=== PATIENT | female | born 1990 | race Caucasian/White ===

== ENCOUNTER → 2020-04-07 08:56 | Outpatient (BNVA) | payer OTHER, SELFPAY | PROVIDERS: PCP Family Medicine; Visit Provider Nurse Practitioner Family | DX: Z20.828 Contact with and (suspected) exposure to other viral communicable diseases (principal); Z01.812 Encounter for preprocedural laboratory examination | CPT/HCPCS: 87635 ==

== ENCOUNTER → 2020-12-18 11:51 | Outpatient (BNVA) | payer OTHER, SELFPAY | PROVIDERS: PCP Family Medicine; Visit Provider Surgery | DX: K62.5 Hemorrhage of anus and rectum (principal); K21.9 Gastro-esophageal reflux disease without esophagitis; Z20.822 Contact with and (suspected) exposure to COVID-19 | CPT/HCPCS: 87635 ==

== ENCOUNTER 2020-12-24 06:43 | Day surgery (SDC) | payer MEDICAID, SELFPAY ==
[2020-12-22 13:56] VITALS: BMI 35.2
--- NOTE | 2020-12-24 07:38 | ANES.PREANE2 ---
Pre-Anesthetic Assessment Pre-Anesthetic Assessment: Height/Weight: Height 1.52 m Weight 81.647 kg Preop Diagnosis: Hematemesis and hematochezia Proposed Procedure: Operation Date: 12/24/20 08:00 Proposed Procedures p EGD/colon 12004 36264 K21.9 K62.5(Not Applicable) - Yoshi Fischer MD s Colonoscopy(Not Applicable) - Yoshi Fischer MD Was Beta Senia taken within 24 hours: N/A Was Clonidine taken within 24 hours: N/A Social: Social History: No alcohol and No tobacco Exam: Pre-Anes Outpt Exam: alert, oriented x 3, clear to auscultation bilaterally and regular rate & rhythm Airway: Submandibular: WNL Cervical ROM: WNL MP: 2 Dentition: Full History/ROS: No significant history except as noted Metabolic: Metabolic: Morbid obesity Anesthetic Plan: ASA status: 2 Anesthesia: MAC Risk of > 500 ml blood loss (7ml/kg in children): No PFSH Anesthesia PFSH: Medical History Rectal bleeding Vomiting blood Surgical History History of ankle surgery Family History Grandfather Cancer COLON Denies family history of Anesthesia complication Bleeding disorder Social History Smoking and tobacco status: never smoked Female Reproductive History: Date of last menstrual period: 11/25/20 Data Anesthesia Cardiac Studies: No Data to Display
[2020-12-24 07:41] VITALS: BP 156/117; PULSE 110; RESP 16; TEMP 36.8; O2SAT 100
[2020-12-24] MEDS: sodium chloride 0.9% 1,000 ML 30 ML IV (07:54)
--- NOTE | 2020-12-24 08:18 | W.PM.OPSUD ---
Surgery/Procedure H&P Update DATE OF PROCEDURE: December 24, 2020 DATE H&P PERFORMED: 12/18/20 H&P UPDATE INFORMATION: I have reviewed H&P completed within last 30 days, I have examined patient prior to procedure and No changes to prior documentation PREOP DIAGNOSIS: Hematemesis and hematochezia PRIMARY INDICATION FOR PROCEDURE: The same PLANNED PROCEDURE: Operation Date: 12/24/20 08:00 Proposed Procedures p EGD/colon 14199 [id number] K21.9 K62.5(Not Applicable) - Yoshi Fischer MD s Colonoscopy(Not Applicable) - Yoshi Fischer MD
[2020-12-24 08:57] VITALS: BP 131/97; PULSE 84; RESP 16; TEMP 36.2; O2SAT 95
--- NOTE | 2020-12-24 09:02 | ANE.PACU2 ---
Inpatient post-anesthesia follow up: Airway intact: Yes Vital signs: Temperature 98.2 F Pulse Rate 110 Respiratory Rate 16 Blood Pressure 156/117 Pulse Oximetry 100 Oxygen Delivery Me thod Room Air Oxygen Flow Rate Fraction of Inspir ed Oxygen Hydration adequate: Yes Nausea and vomiting: Yes Mental status: Baseline
[2020-12-24] MEDS: ondansetron 2 mg/ML SDV 2 mL 4 MG IVP (09:03)
[2020-12-24 09:05] LABS: OR HCG Qualitative Urine Negative (Negative)
[2020-12-24] MEDS: promethazine 25 mg/mL SDV 1 mL 12.5 MG IM (09:29)
[2020-12-24] MEDS: scopolamine 1.5 Patch 1 PATCH TRANSDERMA (09:36)
[2020-12-24 09:39] VITALS: BP 152/102; PULSE 100; RESP 16; TEMP 36.4; O2SAT 100
[2020-12-25 06:38] LABS: H. Pylori / CLO Test Negative
== END 2020-12-24 10:00 | disposition home or self-care (01) ==
PROVIDERS: Anesthesiology; PCP Family Medicine; Visit Provider Surgery
PROC: 0DJ08ZZ Inspection of Upper Intestinal Tract, Via Natural or Artificial Opening Endoscopic (ICD-10-PCS; CPT 43235; principal; 2020-12-24 08:00)
PROC: 0DJD8ZZ Inspection of Lower Intestinal Tract, Via Natural or Artificial Opening Endoscopic (ICD-10-PCS; CPT 45378; 2020-12-24 08:00)
DX: K92.1 Melena (principal); K92.0 Hematemesis; Z80.0 Family history of malignant neoplasm of digestive organs; K21.00 Gastro-esophageal reflux disease with esophagitis, without bleeding; K29.70 Gastritis, unspecified, without bleeding; E66.01 Morbid (severe) obesity due to excess calories; Z68.35 Body mass index [BMI] 35.0-35.9, adult
CPT/HCPCS: 43239; 45378; 84703; 87077; 96361; 96374; J2405; J2550; J2704; J7030

== ENCOUNTER 2024-07-17 01:52 | Inpatient (IN) | payer SELFPAY ==
[2024-07-17] VITALS (7 sets, daily range): BP systolic 123–142; BP diastolic 74–103; PULSE 82–142; RESP 13–20; TEMP 36.7–37; O2SAT 95–99; BMI 35.2
--- NOTE | 2024-07-17 01:53 | ECG_ITS ---
[facility] 2024[facility]17 Pat Name: Yulissa Matthews Department: Room: Gender: Female Machine Folder: : 1990 Requested By: Mallory Medina Order Number: [id number] Rona MD: Calin Randolph M.D. Measurements Intervals Avinger Rate: 136 P: 33 MN: 127 QRS: -46 QRSD: 83 T: 30 QT: 331 QTc: 498 Interpretive Statements SINUS TACHYCARDIA LEFT ANTERIOR FASCICULAR BLOCK [QRS AXIS <= -45, QR IN I, RS IN II] POSSIBLE ANTERIOR MYOCARDIAL INFARCTION , PROBABLY OLD [30 ms Q WAVE IN V3/V4, OR R < 0.2 mV IN V4] Compared to ECG 12/21/2015 22:49:21 Left anterior fascicular block now present Myocardial infarct finding now present Sinus rhythm no longer present Electronically Signed On 07-17-2024 19:19:40 CDT by Calin Randolph M.D. [email or web address]
--- NOTE | 2024-07-17 01:59 | W.ED.OVERDOS ---
HPI - Overdose General: Chief Complaint: Overdose Stated Complaint: possible od Time Seen by Provider: 07/17/24 01:53 History of Present Illness: 33-year-old female who presents emergency room with possible overdose. She took a handful of Benadryl . She is very somnolent on presentation but has continued to say to EMS and to myself that she was just trying to go to sleep that she has no suicidal thoughts or intentions. Related Data Home Medications ?Medication ?Instructions ?Recorded ?Confirmed chlorthalidone 25 mg tablet 25 mg PO DAILY blood pressure 12/22/20 01/11/23 clarithromycin 500 mg tablet 500 mg PO BID 12/22/20 01/11/23 metronidazole 500 mg tablet 500 mg PO BID 12/22/20 01/11/23 omeprazole 40 mg capsule,delayed 40 mg PO DAILY 12/22/20 01/11/23 release Previous Rx's ?Medication ?Instructions ?Recorded azithromycin 500 mg tablet 500 mg PO DAILY 5 days #5 tabs 02/15/22 (Zithromax) cetirizine 10 mg tablet (Zyrtec) 10 mg PO DAILY #30 tabs 02/15/22 ofloxacin 0.3 % ear drops 5 drp otic (ear) BID 5 days #10 mL 02/15/22 Allergies Allergy/AdvReac Type Severity Reaction Status Date / Time Penicillins Allergy Severe ADR-Itching Verified 07/17/24 02:04 Review of Systems General: Reports: 10 or more systems reviewed and unremarkable except in HPI and below PFSH ED PFSH: Medical History Gastritis Rectal bleeding Vomiting blood Surgical History History of ankle surgery Family History Grandfather Cancer COLON Denies family history of Anesthesia complication Bleeding disorder Social History Smoking and tobacco/nicotine status: never used tobacco/nicotine Physical Exam Narrative: EXAM NARRATIVE: General: Somnolent but arousable Skin: Warm, dry Head: Normocephalic, atraumatic. Neck: Supple, trachea midline. Eye: Extraocular movements are intact. Ears, nose, mouth and throat: Dry oral mucosa. Cardiovascular: Regular rate and rhythm, Normal peripheral perfusion. Respiratory: Lungs are clear to auscultation, respirations are non-labored, breath sounds are equal, Symmetrical chest wall expansion. Gastrointestinal: Soft, Nontender, Non distended, Normal bowel sounds. Musculoskeletal: no deformity. Neurological: Somnolent but oriented when awakened, No obvious focal neurological deficit observed. Psychiatric: unable to assess. Course Vital Signs: Vital signs: Vital Signs Temperature 98.4 F 07/17/24 01:55 Pulse Rate 120 H 07/17/24 02:34 Respiratory Rate 13 07/17/24 02:34 Blood Pressure 132/103 07/17/24 02:34 Pulse Oximetry 95 07/17/24 02:34 Oxygen Delivery Me thod Room Air 07/17/24 02:34 MDM - Overdose Medical Decision Making Further history from family member who has filled out an affidavit. She said she was feeling down and felt unloved. At 1 point she stopped answering. She then found her in the bedroom with the door shut and locked and she was sleeping. Medicine open on the counter. Friend thinks this was intentional and not just for sleep. This point a 96-hour hold has been placed and she will be evaluated by psychiatry. Differential diagnosis: Patient with reported depression and suicidal ideation. concerns for infection, alcohol intoxication, cardiac issues or other medical problems prior to psychiatric admission. Workup: labwork, ekg ordered to evaluate the pathologies and to clear the patient medically prior to psychiatric admission Lab Review: Laboratory results were reviewed and interpreted by myself the emergency room physician. - Medically cleared. - EKG shows no ischemic changes. - Blood alcohol level is negative, -Tylenol and salicylate levels are negative. -Urinalysis and drug screen are pending at admission. - No anemia. - BUN and creatinine are within normal limits. Consultation: Poison control was consulted and we are following the recommendations. Consultation: I spoke Dr. Disla who is on-call for psychiatry who agrees to admission. Assessment and plan: Overdose on Benadryl -Admission to neuropsychiatric unit for continued evaluation and treatment. - All lab work was reviewed and interpreted personally by myself, the ER physician - Evaluation and treatment of this problem were appropriate in the emergency setting Lab Data 07/17/24 01:50 07/17/24 02:48 Laboratory Results WBC 10.35 10^3/uL (3.29-11.43) 07/17/24 01:50 RBC 5.66 10^6/uL (3.85-5.65) H 07/17/24 01:50 Hgb 15.40 g/dL (11.27-16.99) 07/17/24 01:50 Hct 46.5 % (36-47) 07/17/24 01:50 MCV 82.2 fl (85-98) L 07/17/24 01:50 MCH 27.2 pg (27-33) 07/17/24 01:50 MCHC 33.1 g/dL (30-55) 07/17/24 01:50 RDW 13.4 % (12.1-15.1) 07/17/24 01:50 Plt Count 378 10^3/cmm (157-399) 07/17/24 01:50 MPV 10.4 fL (7.4-10.4) 07/17/24 01:50 Neut % (Auto) 66.6 % 07/17/24 01:50 Lymph % (Auto) 28.0 % 07/17/24 01:50 [place] % (Auto) 4.0 % 07/17/24 01:50 Eos % (Auto) 0.8 % 07/17/24 01:50 Baso % (Auto) 0.3 % 07/17/24 01:50 Neut # (Auto) 6.90 10^3/uL (1.8-7.7) 07/17/24 01:50 Lymph # (Auto) 2.9 10^3/uL (0.8-4.8) 07/17/24 01:50 [place] # (Auto) 0.4 10^3/uL (0.2-0.9) 07/17/24 01:50 Eos # (Auto) 0.1 10^3/uL (0.0-0.8) 07/17/24 01:50 Baso # (Auto) 0.0 10^3/uL (0.0-0.1) 07/17/24 01:50 Nucleated RBC % (auto) 0 % 07/17/24 01:50 Nucleated RBCs # 0.0 /100WBC 07/17/24 01:50 Sodium 135 mmol/L (136-145) L 07/17/24 02:48 Potassium 3.0 mmol/L (3.5-5.1) L 07/17/24 02:48 Chloride 94 mmol/L (98-107) L 07/17/24 02:48 Carbon Dioxide 24 mmol/L (22-29) 07/17/24 02:48 Anion Gap 20.0 (5-19) H 07/17/24 02:48 BUN 20 mg/dL (6-20) 07/17/24 02:48 Creatinine 1.0 mg/dL (0.5-0.9) H 07/17/24 02:48 GFR Calculation 63.9 mL/min (90-130) L 07/17/24 02:48 Glucose 222 mg/dL (65-115) H 07/17/24 02:48 Calculated Osmolality 289 mOsm/kg (285-295) 07/17/24 02:48 Calcium 9.8 mg/dL (8.5-10.5) 07/17/24 02:48 Magnesium 2.1 mg/dL (1.7-2.3) 07/17/24 02:48 Total Bilirubin 0.7 mg/dL (0.15-1.2) 07/17/24 02:48 AST 21 U/L (0-32) 07/17/24 02:48 ALT 34 U/L (0-33) H 07/17/24 02:48 Alkaline Phosphatase 57 U/L (35-105) 07/17/24 02:48 Creatine Kinase 61 U/L (26-192) 07/17/24 02:48 Total Protein 7.8 g/dL (6.6-8.7) 07/17/24 02:48 Albumin 4.9 g/dL (3.5-5.2) 07/17/24 02:48 Globulin 2.9 g/dL (1.3-4.6) 07/17/24 02:48 TSH 4.22 uIU/mL (0.27-4.20) H 07/17/24 02:48 Salicylates < 0.3 mg/dL (3-10) L 07/17/24 02:48 Acetaminophen < 5.0 ug/mL (10-30) L 07/17/24 02:48 Ethyl Alcohol < 10 mg/dL (0-10) 07/17/24 02:48 No radiology studies performed this visit Discharge Plan Discharge Patient Disposition: Admitted As Inpatient Clinical Impression: Drug overdose Condition: Stable Coding Level of Care Code ED Spring Assembler for Efrem Lincoln
[2024-07-17 02:08] LABS: Basophils % 0.3 %; Eosinophils # 0.1 10^3/uL (0.0-0.8); Eosinophils % 0.8 %; Hematocrit 46.5 % (36-47); Lymphocytes # 2.9 10^3/uL (0.8-4.8); Mean Corpuscular HGB Conc 33.1 g/dL (30-55); Mean Corpuscular Hemoglobin 27.2 pg (27-33); Mean Corpuscular Volume 82.2 fl (85-98); Mean Platelet Volume 10.4 fL (7.4-10.4); Monocytes # 0.4 10^3/uL (0.2-0.9); Neutrophils % 66.6 %; Nucleated Red Blood Cells % 0 %; Platelet Count 378 10^3/cmm (157-399); Red Blood Count 5.66 10^6/uL (3.85-5.65); Red Cell Distribution Width 13.4 % (12.1-15.1); White Blood Count 10.35 10^3/uL (3.29-11.43)
--- NOTE | 2024-07-17 02:27 | PC.NURSE ---
poison control contacted and info is being faxed over at this time
--- NOTE | 2024-07-17 02:54 | PC.NURSE ---
The patient's friend stated The patient requested her to come to her residence. The friend reported that the patient indicated she ingested approximately 15 sleeping aid pills. A friend reports that the patient is experiencing depression. The patient is experiencing relationship difficulties with her , and her mother has lately . The patient's friend states that when the patient contacted, she requested her friend to ensure the safety of one of her children who was not her 's.
--- NOTE | 2024-07-17 02:54 | PC.NURSE ---
The registered nurse withdrew a makeshift butterfly lab draw kit IV from the right antecubital, which had been inserted by the family at home prior to the arrival of emergency medical services. Needle was intact after removal.
[2024-07-17 03:19] LABS: Creatine Phosphokinase 61 U/L (26-192); Magnesium 2.1 mg/dL (1.7-2.3)
[2024-07-17 03:30] LABS: Alanine Aminotransferase 34 U/L (0-33); Albumin Level 4.9 g/dL (3.5-5.2); Alkaline Phosphatase 57 U/L (35-105); Aspartate Amino Transferase 21 U/L (0-32); Blood Urea Nitrogen 20 mg/dL (6-20); Calcium 9.8 mg/dL (8.5-10.5); Carbon Dioxide 24 mmol/L (22-29); Chloride 94 mmol/L (98-107); Creatinine Clr Calc Pharmacy 75.7396; Globulin 2.9 g/dL (1.3-4.6); Glomerular Filtration Rate 63.9 mL/min (90-130); Glucose 222 mg/dL (65-115); Osmolality Calculated 289 mOsm/kg (285-295); Sodium 135 mmol/L (136-145); Thyroid Stimulating Hormone 4.22 uIU/mL (0.27-4.20); Total Bilirubin 0.7 mg/dL (0.15-1.2); Total Protein 7.8 g/dL (6.6-8.7)
[2024-07-17 03:31] LABS: Acetaminophen < 5.0 ug/mL (10-30); Alcohol Level < 10 mg/dL (0-10); Salicylate < 0.3 mg/dL (3-10)
--- NOTE | 2024-07-17 04:54 | PC.NURSE ---
96 Hour Hold Pt served with copy of 96 Hour Hold by this RN and security pt awake but drowsy. Pt stated she understood the process but stated I don't want to stay, I've got children at home .
[2024-07-17] MEDS: potassium chloride oral liq 20 mEq/15 mL UDC 40 MEQ PO (05:01)
[2024-07-17 05:06] LABS: HCG Qualitative Urine. Negative (Negative)
[2024-07-17 05:35] LABS: Bilirubin Urine Negative (Negative); Blood Urine 3+ (Negative); Glucose Urine UA Negative (Normal); Ketones Urine Negative (Negative); Leukocyte Esterase Urine Negative (Negative); Nitrate Urine Negative (Negative); Protein Urine Negative (Negative); Specific Gravity, Urine 1.011 (1.005-1.030); Urine Appearance Clear (CLEAR); Urine Color Yellow (Yellow); Urobilinogen Urine 0.2 mg/dL (Negative)
[2024-07-17 05:40] LABS: Bacteria Urine None Seen /hpf; Hyaline Casts Urine 0.81 /lpf; WBC Urine 0-5 /hpf (0-5)
[2024-07-17 05:45] LABS: Amphetamines Screen Urine Negative (Negative); Barbiturates Screen Urine Negative (Negative); Benzodiazepines Screen Urine Negative (Negative); Cocaine Screen Urine Negative (Negative); Opiate Screen Urine Negative (Negative); PCP Screen Urine Negative (Negative); THC Screen Urine Negative (Negative)
--- NOTE | 2024-07-17 06:06 | PC.NURSE ---
Reina from Poison control called and asked about patient status. She recommended replacing potassium based on labs and EKG.
--- NOTE | 2024-07-17 14:42 | PC.NURSE ---
Patient stated she was concerned about her 14 month old baby not eating while she was in the hospital. She said the baby was not eating and was usually breastfed 5-6 times daily. Staff asked if the baby ate table food yet and she said the baby did, but also breastfed the 5-6 times. Staff offered to obtain pumping supplies for the patient, but she stated the baby would not drink the milk other than from her breast. This RN then contacted assistant warehouse manager, Jacqueline Frazier, and risk management, Kaitlin Murry, to discuss the options available to the patient. Kaitlin consulted with OB, who said due to the child's age that providing accommodations for the patient to breastfeed the baby once daily would be sufficient. Dr. Disla did request the patient not breastfeed the baby until 24 hours after she had taken the benadryl due to it potentially passing to the baby through the breastmilk. Teaching was also provided to the patient to be cognizant of the medications she would be prescribed while here and if they could possibly be passed through breastmilk as well.
--- NOTE | 2024-07-17 14:55 | PC.NURSE ---
Breast Feeding Patients friend Corazon called wanting to know if they could bring patients 14 month old child to the visiting hours. States that the child is still breast feeding and will not take a bottle. This nurse went and spoke with the patient to get more details. Patient states that child does still breast feed 5-6 times per day, does eat solids, and will take fluids besides breast mild through a sip cup. Patient became worried and wanted to know what we were going to do to let her feed her baby, because the current [facility] rule is that no person under the age of 18 is permitted on the unit. I informed pt that I would speak with the Dr and the News Photographer to see what could be done. Dr. Disla stated that pt didn't need to breast feed for at least 24 hours because Benadrly does cross into breast milk and patient took a large amount of benadryl at approximently 2100 on 07/16. From there he wasn't sure what should be done as far as rules, that needed to be presented to the nurse supply chain program manager as he has never been presented with this issue. This nurse spoke with Nurse Operations Expert, Corazon, and from there she spoke with Oil Recovery Unit Operator, Jacqueline, also Risk Management and OB. the decision was made that patient should for sure wait the 24 hours before safely breast feeding her child and that the friends/family could bring the child once a day during visitor hours to allow breast feeding time. We would offer and 1:1 in patient's room during this time. I informed patient of this information with other RN, Lilia. She became slightly upset and tearful for a short time. She acknowledged that she wasn't upset with staff or hospital, and realized that this was her fault and due to her actions, but that she was worried about her baby. States that baby probably was very upset and not eating or drinking well and was likely having difficulty falling asleep. We sat and talked to patient for a bit and brought her some water. Let her know that Dr. Disla would be in to see her and they could discuss her d/c plans. She continues to say she needs to leave so she can care for her child. Lilia and I reassured her that getting herself taken care of was top priority at that moment and we would do what we could to help her improve.
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
[2024-07-17 16:24] LABS: Alanine Aminotransferase 34 U/L (0-33); Albumin Level 4.6 g/dL (3.5-5.2); Alkaline Phosphatase 52 U/L (35-105); Anion Gap 14.4 (5-19); Aspartate Amino Transferase 22 U/L (0-32); Blood Urea Nitrogen 17 mg/dL (6-20); Calcium 9.2 mg/dL (8.5-10.5); Carbon Dioxide 27 mmol/L (22-29); Chloride 96 mmol/L (98-107); Creatinine Clr Calc Pharmacy 94.6745; Globulin 3.1 g/dL (1.3-4.6); Glomerular Filtration Rate 82.6 mL/min (90-130); Glucose 149 mg/dL (65-115); Osmolality Calculated 282 mOsm/kg (285-295); Potassium 3.4 mmol/L (3.5-5.1); Sodium 134 mmol/L (136-145); Total Bilirubin 0.9 mg/dL (0.15-1.2); Total Protein 7.7 g/dL (6.6-8.7)
[2024-07-17] MEDS: LORazepam 1 mg Tablet PO (17:38)
--- NOTE | 2024-07-17 17:43 | PC.NURSE ---
Anxiety PRN Pt was wanting something for anxiety and the order was for hydroxizine which is an antihistamine and pt has a recent OD of antihistamine. I spoke with Dr. Disla and he stated he in fact did not want pt to use the PRN hydroxizine. Dr. Disla gave a one time v/o for ativan 1 mg and requested that we be sure and document how well it works for her. A hold was also placed on the hydroxizine until okayed by Dr. Disla in the future.
--- NOTE | 2024-07-17 18:30 | PC.NURSE ---
Home medication This nurse called staff at [facility] in [facility]. Per pharmacist, patient is on metformin 500mg, one tab daily by mouth. No other active medications.
[2024-07-18 06:00] VITALS: BP 118/72; PULSE 68; RESP 17; O2SAT 97
[2024-07-18] MEDS: sertraline 50 mg Tablet 25 MG PO (09:11)
[2024-07-18] MEDS: metformin 500 mg Tablet PO (09:11)
[2024-07-18 11:39] LABS: Glucose Point of Care 127 mg/dL (70-110)
[2024-07-18 14:00] VITALS: BP 135/89; PULSE 101; RESP 17; TEMP 36.7; O2SAT 95
--- NOTE | 2024-07-18 15:52 | P.NPUPN_ITS ---
Subjective NPU 2 Subjective: 33-year-old female with depression and g eneralized anxiety disorder admitted with worsening depression and overdose on Benadryl with suicidal ideation. The patient had reported that she was feeling better. She had continued to endorse depressed mood and reported chronic anxiety. She had been more tearful and discussion regarding her children stating that her children very much needed her. She had reported having some support from friends and family. She had described struggles with depression for several years but did report a history of recovery in remission for longer than 3 months. She had reported success with Zoloft and stated that she was following with resuming this medication. Mental Status Exam 2 MSE Comments: 33-year-old female who appeared her stat ed age with moderate psychomotor retardation present. She was less tearful throughout the interview. Her hygiene was fair. There was no evidence of any abnormal involuntary motor movements, tics, or tremors appreciated. Her mood was described as depressed. Her affect was tearful and mood congruent. Her thought process was linear, logical and goal-directed. Her thought content showed no evidence of homicidal ideation. She denied any suicidal ideation but acknowledged the potential lethality of having taken Benadryl is simply something more than for sleep. There was no clear evidence of delusional thinking. She did not appear to be responding to internal stimuli. She was alert and oriented to person,place, time and situation. Her attention span appeared fair. Her insight is poor. Her judgment was poor. Her impulse control appeared poor as well. Her recent and remote memory were grossly intact. She endorsed some feelings of guilt and hopelessness. Vitals/I&O/Wt Last Vital Signs Temp 98.0 F 07/17/24 22:00 Pulse 68 07/18/24 06:00 Resp 17 07/18/24 06:00 BP 118/72 07/18/24 06:00 Pulse Ox 97 07/18/24 06:00 O2 Del Method Room Air 07/18/24 06:00 Weight last 48 hrs Weight 81.647 kg Weight 81.647 kg Data NPU 07/17/24 01:50 07/17/24 15:55 A&P Assessment and plan (1) MDD (major depressive disorder), recurrent severe, without psychosis: (2) Generalized anxiety disorder: Plan 33-year-old female admitted after overdose on Benadryl involuntarily with symptoms suggestive of major depressive disorder recurrent severe along with generalized anxiety disorder. She appears to have significant lack of support and appears willing to receive treatment at this time she has continued to decline in her current episode of depression. #1.? Engage patient in individual milieu and group therapy. #2?? Recommend sober living treatment at the highest level of care to which the patient is willing to commit #3??? Increase zoloft 50mg daily. #4?? TO-15 minute checks? #5?? Will attempt to gather collateral information PDMP PDMP Reviewed: Not Reviewed Involuntary Hold Information 2 Hold Status: Legal Status: 96 Hour Hold Date/Time Hold Expires: 07/23/24 @0345 Attestations NPU 2 Medical Necessity Statement*: Inpatient hospitalization is medically necessary and deemed to be the clinically appropriate intervention at this time. Medications will be adjusted and initiated as indicated.?? The patient?s likely length of stay is 2-3 days. ? Coding Level of Care Code Acute Code for [facility] Fwd Diagnoses MDD (major depressive disorder), recurrent severe, without psychosis F33.2 Generalized anxiety disorder F41.1
[2024-07-18 20:42] VITALS: BP 147/94; PULSE 86; RESP 18; O2SAT 94
[2024-07-18] MEDS: trazodone 50 mg Tablet PO (22:30)
[2024-07-19 06:00] VITALS: BP 114/81; PULSE 83; RESP 16; O2SAT 96
[2024-07-19] MEDS: cetirizine 10 mg Tablet PO (08:40)
[2024-07-19] MEDS: pantoprazole DR 40 mg Tablet PO (08:40)
[2024-07-19] MEDS: metformin 500 mg Tablet PO (08:40)
[2024-07-19] MEDS: sertraline 50 mg Tablet PO (08:41)
[2024-07-19 10:19] LABS: Glucose Point of Care 144 mg/dL (70-110)
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
[2024-07-19 13:20] VITALS: BP 132/95; PULSE 88; RESP 16; TEMP 36.6; O2SAT 98
[2024-07-19 13:23] VITALS: BP 132/95; PULSE 88; RESP 16; TEMP 36.6; O2SAT 98
[2024-07-19 14:00] VITALS: RESP 17
== END 2024-07-19 15:10 | disposition home or self-care (01) | DRG 918 ==
LOC: ER 04:50 → NP 05:03
PROVIDERS: Admitting Provider Psychiatry & Neurology Psychiatry; Emergency Provider Emergency Medicine; PCP Family Medicine; Visit Provider Psychiatry & Neurology Psychiatry
DX: T45.0X2A Poisoning by antiallergic and antiemetic drugs, intentional self-harm, initial encounter (principal); F33.2 Major depressive disorder, recurrent severe without psychotic features; F41.1 Generalized anxiety disorder; I10 Essential (primary) hypertension
CPT/HCPCS: 36415; 36416; 80053; 80306; 80307; 81001; 81025; 82550; 82962; 83735; 84443; 85025; 93005; 97165; 99285; J9999